=== PATIENT | male | born 1995 | race Caucasian/White ===

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

== ENCOUNTER 2017-09-20 22:13 | Emergency (ER) | payer OTHER ==
[2017-09-20] MEDS ORDERED: Lidocaine 2% VISCOUS* 15 ML UDC PO ONE (23:14)
[2017-09-20] MEDS ORDERED: Acetaminophen TAB* 325 MG PO ONE (23:15)
--- NOTE | 2017-09-20 23:18 | ED ---
Influenza-Like Illness - HPI Summary HPI Summary: Complains of body aches, PEREZ, subjective fever, sore throat, bilateral ear pain 9 hours. Denies cough, nasal discharge, facial pressure, neck stiffness, N/V/D , abdomen pain, change in urine or BM, rash. Medical history is none. Ibuprofen at 6:30 PM tonight. - History of Current Complaint Chief Complaint: EDThroatPain Time Seen by Provider: 09/20/17 23:00 Hx Obtained From: Patient Onset/Duration: Gradual Onset, Lasting Hours Severity: Moderate Associated Signs & Symptoms: Fever, Myalgia, Sore Throat, Headache - Allergy/Home Medications Allergies/Adverse Reactions: Allergies Allergy/AdvReac Type Severity Reaction Status Date / Time No Known Allergies Allergy Verified 09/20/17 22:17 PMH/Surg Hx/FS Hx/Imm Hx Endocrine/Hematology History: Denies: Hx Diabetes Cardiovascular History: Denies: Hx Hypertension - Surgical History Surgery Procedure, Year, and Place: None Infectious Disease History: No Infectious Disease History: Denies: Traveled Outside the [place] in Last 30 Days - Family History Known Family History: Negative: Cardiac Disease, Hypertension, Diabetes - Social History Alcohol Use: Occasionally Substance Use Type: Reports: None Smoking Status (MU): Never Smoked Tobacco Review of Systems Positive: Fever, Chills Eyes: Negative Positive: Sore Throat, Ear Ache Cardiovascular: Negative Respiratory: Negative Gastrointestinal: Negative Genitourinary: Negative Musculoskeletal: Negative Skin: Negative Neurological: Negative Psychological: Normal All Other Systems Reviewed And Are Negative: Yes Physical Exam Triage Information Reviewed: Yes Vital Signs On Initial Exam: Initial Vitals Temp Pulse Resp BP Pulse Ox 99.2 F 101 18 135/77 98 09/20/17 22:15 09/20/17 22:15 09/20/17 22:15 09/20/17 22:15 09/20/17 22:15 Vital Signs Reviewed: Yes Appearance: Positive: Well-Appearing Skin: Positive: Warm Head/Face: Positive: Normal Head/Face Inspection Eyes: Positive: Normal ENT: Positive: Pharyngeal erythema, TMs normal. Negative: Nasal congestion, Nasal drainage, Tonsillar swelling, Tonsillar exudate, Sinus tenderness Neck: Positive: Supple Respiratory/Lung Sounds: Positive: Clear to Auscultation Cardiovascular: Positive: Normal Abdomen Description: Positive: Nontender Musculoskeletal: Positive: Normal Neurological: Positive: Normal Psychiatric: Positive: Normal AVPU Assessment: Alert - [place] Coma Scale Best Eye Response: 4 - Spontaneous Best Motor Response: 6 - Obeys Commands Best Verbal Response: 5 - Oriented Coma Scale Total: 15 Diagnostics - Vital Signs Vital Signs Temp Pulse Resp BP Pulse Ox 09/20/17 22:15 99.2 F 101 18 135/77 98 - Laboratory Lab Statement: Any lab studies that have been ordered have been reviewed, and results considered in the medical decision making process. Flu Symptom Course/Dx - Diagnoses Provider Diagnoses: Viral syndrome Discharge - Sign-Out/Discharge Documenting (check all that apply): Discharge - Discharge Plan Condition: Stable Disposition: HOME Prescriptions: Lidocaine 2% VISCOUS* [Xylocaine 2% Viscous*] 15 ml SWISH SPIT Q6H PRN #1 btl PRN Reason: Pain Patient Education Materials: Viral Syndrome (ED) Referrals: No Primary Care Phys,NOPCP [Primary Care Provider] - Additional Instructions: Tylenol and ibuprofen for control of fever and body aches. Follow-up with primary care. Return to the ED for any worsening symptoms - Billing Disposition and Condition Condition: STABLE Disposition: HOME
[2017-09-21 00:32] VITALS: BP 135/70
== END 2017-09-21 00:32 | disposition home or self-care (01) ==
LOC: ED 22:13
DX: B34.9 Viral infection, unspecified (principal); R51 Headache; J02.9 Acute pharyngitis, unspecified
CPT/HCPCS: 36415; 86308; 87502; 87651; 99282; A9270-GY